=== PATIENT | male | born 1990 | race Caucasian/White ===

== ENCOUNTER 2019-04-01 11:10 | Emergency (ER) | payer SELFPAY ==
[~2019-04-01] VITALS: Ht 180.3 cm; Wt 68.7 kg
[2019-04-01 11:53] VITALS: BP 132/82
--- NOTE | 2019-04-01 11:58 | NUR ---
PT TO LOBBY
--- NOTE | 2019-04-01 13:24 | NUR ---
PT AMBULATED TO ER BED 04
--- NOTE | 2019-04-01 13:25 | NUR ---
BIB SELF . APPROX 2.5 CM X 1 CM LEFT HAND LAC WITH MASKING GUN X YESTERDAY 2299. NO ACTIVE BLEEDING. +PMSC.TETANUS: UTD 2018. PATIENT STATES PAIN OF 8/10 AT THIS TIME; PATIENT POSITIONED FOR COMFORT; HOB ELEVATED; BEDRAILS UP X1; BED DOWN. ER MD MADE AWARE OF PT STATUS.
[2019-04-01] MEDS ORDERED: LIDOCAINE 1% 500 MG/50 ML VIAL INJ SCH (14:05)
[2019-04-01] MEDS ORDERED: LIDOCAINE MPF 1% - 5 mL VIAL 5 ML ONE (14:18)
[2019-04-01] MEDS ORDERED: BACITRACIN OINT 500 UNITS/GM PKT TP ONE (14:25)
--- NOTE | 2019-04-01 14:40 | NUR ---
STURE DONE BY KYLIE CROCKERPT TOLERATED PROCEDURE WELL.
--- NOTE | 2019-04-01 14:44 | NUR ---
Patient discharged with v/s stable. Written and verbal after care instructions given and explained. Patient alert, oriented and verbalized understanding of instructions. Ambulatory with steady gait. All questions addressed prior to discharge. ID band removed. Patient advised to follow up with PMD. Rx of IBUPROFEN & BACITRACIN given. Patient educated on indication of medication including possible reaction and side effects. Opportunity to ask questions provided and answered.
[2019-04-01 14:45] VITALS: BP 132/82
[2019-04-01] MEDS ORDERED: NEOMYCIN/POLYMYXIN/BACITRACIN 0.9 GM/1 PKT TP ONE (14:48)
== END 2019-04-01 14:44 | disposition home or self-care (01) ==
LOC: MED 11:10
DX: S61.412A Laceration without foreign body of left hand, initial encounter (principal); W26.8XXA Contact with other sharp object(s), not elsewhere classified, initial encounter; Y93.89 Activity, other specified; Y92.89 Other specified places as the place of occurrence of the external cause; Y99.8 Other external cause status
CPT/HCPCS: 12002; 99283; J2001